=== PATIENT | male | born 1985 | race African-American/Black ===

== ENCOUNTER → 2019-08-16 | Outpatient (CLI) | payer OTHER ==
[~2019-08-16] MED LIST: IBUP200C29 PO
[2019-08-16 16:20] LABS: HEMATOCRIT 38.9 % (42.0-52.0); HEMOGLOBIN 12.4 g/dl (13.5-17.5); MEAN CORPUSCULAR HEMOGLOBIN 27.6 pg (27.0-33.0); MEAN CORPUSCULAR HGB CONC 31.9 g/dl (32.0-36.5); MEAN CORPUSCULAR VOLUME 86.6 fl (80.0-96.0); PLATELET COUNT, AUTOMATED 204 10^3/uL (150-450); RED BLOOD COUNT 4.49 10^6/uL (4.30-6.10); WHITE BLOOD COUNT 5.2 10^3/uL (4.0-10.0)
[2019-08-16 16:21] LABS: BLOOD UREA NITROGEN 16 MG/DL (7-18); CARBON DIOXIDE LEVEL 29 MEQ/L (21-32); CHLORIDE LEVEL 107 MEQ/L (98-107); CREATININE FOR GFR 1.36 MG/DL (0.70-1.30); GLOMERULAR FILTRATION RATE > 60.0 (>60); GLUCOSE, FASTING 123 MG/DL (70-100); POTASSIUM SERUM 4.4 MEQ/L (3.5-5.1); SODIUM LEVEL 140 MEQ/L (136-145)
== END ==
LOC: M WUC 14:30
PROVIDERS: ATTEND Plastic Surgery Surgery of the Hand
DX: L90.5 Scar conditions and fibrosis of skin (principal)

== ENCOUNTER 2019-08-21 06:37 | Day surgery (SDC) | payer OTHER ==
[~2019-08-21] VITALS: Ht 172.7 cm; Wt 88.0 kg
[~2019-08-21 06:37] MED LIST changes: +LR 1,000 ML IV ONE
[2019-08-21] MEDS ORDERED: ceFAZolin SOD 1 GM in D5W MINI-BAG PLUS 50 ML IV ONE (07:00)
[2019-08-21] MEDS ORDERED: ceFAZolin 1GM INJ (J0690 PER 500MG) As Ordered ONE (07:15)
[2019-08-21] MEDS ORDERED: ONDANSETRON 4MG/2ML VIAL (J2405) As Ordered ONE (08:25)
[2019-08-21] MEDS ORDERED: propofoL 200 MG/20 ML VIAL As Ordered ONE (08:25)
[2019-08-21] MEDS ORDERED: POVIDONE-IODINE 5% OPHTH PREP SOL 30ML As Ordered ONE (08:25)
[2019-08-21] MEDS ORDERED: LIDOCAINE 2% INJ 100 MG/5 ML SDV (FOR ANES.) As Ordered ONE (08:25)
[2019-08-21] MEDS ORDERED: dexameTHASONE 4 MG/ML 1ML VIAL (J1100) As Ordered ONE (08:26)
[2019-08-21] MEDS ORDERED: BACITRACIN OINT 30GM As Ordered ONE (08:26)
[2019-08-21] MEDS ORDERED: fentaNYL 100 MCG/2 ML INJECTION (J3010) As Ordered ONE (08:27)
[2019-08-21] MEDS ORDERED: MIDAZOLAM INJ 5 MG/ML VIAL (J2250) As Ordered ONE (08:27)
[2019-08-21] MEDS ORDERED: TRIAMCINOLONE ACETONIDE SUSP 40 MG/ML VIAL (J3301) XX ONE (08:30)
[2019-08-21] MEDS ORDERED: LIDOCAINE 2% W/EPIN INJ 20ML **PRES FREE As Ordered ONE (08:56)
--- NOTE | 2019-08-21 09:48 | POST-OPPD ---
Postoperative Procedure Note Date Of Procedure: Aug 21, 2019 PREOPERATIVE DIAGNOSIS: Left preauricular keloid POSTOPERATIVE DIAGNOSIS: same FINDINGS: Left pre auricular keloid PROCEDURE: Excision of Left preauricular Keloid SURGEON: Dr Solorzano ANESTHESIA: Local with sedation SPECIMENS: Left preauricular mass ESTIMATED BLOOD LOSS: 1 cc REPLACED: none DRAINS: none COMPLICATIONS: none POSTOPERATIVE CONDITION: stable Dict [id number] CARLOS A SOLORZANO DO Aug 21, 2019 09:48
[2019-08-21 10:10] VITALS: BP 132/75
--- NOTE | 2019-08-22 08:09 | RO ---
DATE OF OPERATION: 08/21/2019 PREOPERATIVE DIAGNOSIS: Left preauricular keloid. POSTOPERATIVE DIAGNOSIS: Left preauricular keloid. FINDINGS: Left preauricular keloid. PROCEDURE: Excision of left preauricular keloid. SURGEON: Elenita Brandt DO ANESTHESIA: Local with sedation. SPECIMENS: Left preauricular mass. ESTIMATED BLOOD LOSS: 1 mL. COMPLICATIONS: No complications. PROCEDURE: This is a 34-year-old male who has presented to us with a 2 x 1 cm keloid in the preauricular area. The patient had a cyst there before, but now it is a hard mass. It is itching and hyperpigmented and cause the patient discomfort. He would like to have it resected. He is scheduled for procedure today and informed consent was obtained. The risks, benefits and alternatives were discussed with the patient. He is ready to proceed. He was brought into the operating room and placed in supine position. Preoperative antibiotics were given. Sequential stockings were placed on the lower calves. Sedation was given to the patient and we infiltrated the area with 2% Lidocaine with Epinephrine. After the local anesthetic began to work, the elliptical incision was carried out, along the anterior ear border. The thick keloid tissue was excised using a 15 blade and then was sent to pathology. Hemostasis obtained using electrocautery. Then the flap was created, the preauricular flap, and undermining was done extending 2 cm. The incision was closed with interrupted with #4-0 Monocryl and #4-0 nylon sutures in layers, Kenalog 40 mg 0.5 mL mixed with 0.5 mL of 2% lidocaine with epinephrine was mixed and infiltrated into the area, total of 1.4 mL. Steri-Strips were placed. The patient tolerated the procedure well. He was transferred to the recovery room in stable condition. JAMEEL
== END 2019-08-21 10:15 | disposition home or self-care (01) ==
LOC: M SDC 06:37
PROVIDERS: ATTEND Plastic Surgery Surgery of the Hand
DX: L91.0 Hypertrophic scar (principal); K21.9 Gastro-esophageal reflux disease without esophagitis
CPT/HCPCS: 11442; 88302; J2250; J3010; J3301

== ENCOUNTER 2020-04-10 13:20 | Emergency (ER) | payer OTHER ==
[~2020-04-10] VITALS: Ht 172.7 cm; Wt 88.6 kg
[~2020-04-10 13:20] MED LIST changes: -LR 1,000 ML IV ONE
[2020-04-10] MEDS ORDERED: KETOROLAC 60MG 2ML VIAL IM ONE (15:30)
[2020-04-10] MEDS ORDERED: diazePAM 10MG/2ML SYRINGE (J3360 PER 5MG) IM ONE (15:30)
--- NOTE | 2020-04-10 15:37 | REPVR ---
PROCEDURE INFORMATION: Exam: XR Chest, 2 Views Exam date and time: 04/10/2020 3:20 PM Age: 35 years old Clinical indication: Chest pain; Type not specified; Additional info: Left anterior chest pain TECHNIQUE: Imaging protocol: XR of the chest Views: 2 views. COMPARISON: No relevant prior studies available. FINDINGS: Lungs: There is mild scarring in the right mid to upper lung field. The lungs are otherwise clear. Pleural space: Unremarkable. No pleural effusion. No pneumothorax. Heart/Mediastinum: Unremarkable. No cardiomegaly. Bones/joints: Unremarkable. IMPRESSION: No evidence for acute pulmonary disease. Electronically signed by: Dave Padron On 04/10/2020 15:37:39 PM
[2020-04-10 16:56] VITALS: BP 142/82
[2020-04-10] MEDS ORDERED: IBUP-1022 PO (16:59)
[2020-04-10] MEDS ORDERED: ROBA750T4 PO (16:59)
== END 2020-04-10 17:05 | disposition home or self-care (01) ==
LOC: M ED 13:20
DX: S29.011A Strain of muscle and tendon of front wall of thorax, initial encounter (principal); X50.9XXA Other and unspecified overexertion or strenuous movements or postures, initial encounter; Y92.89 Other specified places as the place of occurrence of the external cause; Y93.9 Activity, unspecified; Y99.1 Military activity
CPT/HCPCS: 71046; 96372; 99283; J1885; J3360

== ENCOUNTER 2021-04-09 10:28 | Emergency (ER) | payer OTHER ==
[~2021-04-09] VITALS: Ht 170.2 cm; Wt 95.0 kg
[~2021-04-09 10:28] MED LIST changes: +IBUP-1022 PO; +ROBA750T4 PO
[2021-04-09 15:19] LABS: BASO % 0.4 % (0.0-1.0); EOS % 0.1 % (0.0-3.0); HEMATOCRIT 43.7 % (42.0-52.0); HEMOGLOBIN 13.8 g/dl (13.5-17.5); LYMPH # 1.9 10^3/uL (1.5-5.0); LYMPH % 21.2 % (24.0-44.0); MEAN CORPUSCULAR HEMOGLOBIN 26.8 pg (27.0-33.0); MEAN CORPUSCULAR HGB CONC 31.6 g/dl (32.0-36.5); MONO # 0.4 10^3/uL (0.0-0.8); MONO % 4.4 % (2.0-8.0); NEUTROPHILS # 6.6 10^3/uL (1.5-8.5); NEUTROPHILS % 72.9 % (36.0-66.0); PLATELET COUNT, AUTOMATED 264 10^3/uL (150-450); RED BLOOD COUNT 5.14 10^6/uL (4.30-6.10); WHITE BLOOD COUNT 9.1 10^3/uL (4.0-10.0)
[2021-04-09 15:34] LABS: RSV AMPLIFICATION NEGATIVE (NEGATIVE)
[2021-04-09 16:29] LABS: ALBUMIN 3.5 GM/DL (3.2-5.2); ALT/SGPT 34 U/L (12-78); BILIRUBIN,DIRECT < 0.1 MG/DL (0.0-0.2); BILIRUBIN,TOTAL 0.4 MG/DL (0.2-1.0); BLOOD UREA NITROGEN 17 MG/DL (7-18); CALCIUM LEVEL 9.3 MG/DL (8.5-10.1); CARBON DIOXIDE LEVEL 23 MEQ/L (21-32); CHLORIDE LEVEL 109 MEQ/L (98-107); CREATININE FOR GFR 1.24 MG/DL (0.70-1.30); GLOMERULAR FILTRATION RATE > 60.0 (>60); GLUCOSE, FASTING 105 MG/DL (70-100); LIPASE 58 U/L (73-393); SODIUM LEVEL 138 MEQ/L (136-145); THYROID STIMULATING HORMONE 0.296 uIU/ML (0.358-3.740); TOTAL PROTEIN 7.6 GM/DL (6.4-8.2)
[2021-04-09] MEDS ORDERED: NS 1,000 ML IV ONE (16:30)
[2021-04-09] MEDS ORDERED: ONDANSETRON 4MG/2ML VIAL IV ONE (16:30)
[2021-04-09] MEDS ORDERED: KETOROLAC 30 MG/ML 1ML VIAL IV ONE (16:30)
[2021-04-09] MEDS ORDERED: ISOVUE-370 76% 100ML VIAL As Ordered ONE (16:34)
--- NOTE | 2021-04-09 17:01 | REP ---
INDICATION: luq pain/sob. COMPARISON: 04/10/2020. TECHNIQUE: Single portable AP view of the chest was performed. FINDINGS: Mild bilateral interstitial fibrotic scarring is stable. No acute infiltrate is seen. The heart and mediastinum are unremarkable and unchanged. IMPRESSION: No acute pulmonary disease. <Electronically signed by Jose Elias Welch > 04/09/21 [id number]
--- NOTE | 2021-04-09 17:08 | REP ---
INDICATION: luq pain COMPARISON: None. TECHNIQUE: CT Scan of the abdomen and pelvis was performed with intravenous administration of 100 cc of Isovue 370, without oral contrast. Sagittal and coronal reconstruction images are performed. FINDINGS: Lung bases: Mild bibasilar fibrotic change. Liver: Normal Gallbladder: Unremarkable. Spleen: Normal. Adrenals: Normal. Pancreas: Normal. Kidneys: There is a 3 mm calculus in the distal end of the left ureter with mild left hydroureteronephrosis. Small and large bowel: Unremarkable. Free fluid: None. Abdominal aorta: No aneurysm or dissection. Adenopathy: None. Appendix: Not inflamed. Osseous structures: Unremarkable. Pelvis: No mass. There is some diastasis of the rectus muscles in the region of the umbilicus. IMPRESSION: There is a 3 mm calculus in the distal end of the left ureter with mild left hydroureteronephrosis. <Electronically signed by Jose Elias Welch > 04/09/21 [id number]
[2021-04-09] MEDS ORDERED: FLOM0.4C39 PO (19:03)
[2021-04-09] MEDS ORDERED: KETO10TAB PO (19:03)
[2021-04-09 19:27] LABS: CK-MB VALUE MASS 3.8 NG/ML (<3.6); CPK CREATINE PHOSPHOKINASE 657 U/L (39-308); MB/CK RELATIVE INDEX 0.58 (< OR =4); TROPONIN I 0.03 NG/ML (< 0.10)
[2021-04-09 19:36] VITALS: BP 160/85
== END 2021-04-09 19:41 | disposition home or self-care (01) ==
LOC: M ED 10:28
DX: N21.1 Calculus in urethra (principal); E05.90 Thyrotoxicosis, unspecified without thyrotoxic crisis or storm
CPT/HCPCS: 71045; 71046; 74177; 80048; 80076; 81001; 82550; 82553; 83690; 84443; 84484; 85025; 87631; 96361; 96374; 96375; 99284; J1885; J2405; Q9967